=== PATIENT | female | born 1980 | race Caucasian/White ===

== ENCOUNTER → 2023-05-08 12:29 | Outpatient (REF) | payer OTHER, SELFPAY | LOC: WDC 12:29 | PROVIDERS: ATTENDING PHYSICIAN Obstetrics & Gynecology; FAMILY PHYSICIAN Family Medicine | DX: Z12.31 Encounter for screening mammogram for malignant neoplasm of breast (principal) | CPT/HCPCS: 77063; 77067 ==

== ENCOUNTER → 2024-03-26 10:21 | Outpatient (REF) | payer OTHER, SELFPAY | LOC: HWRAD 10:21 | PROVIDERS: ATTENDING PHYSICIAN Obstetrics & Gynecology; FAMILY PHYSICIAN Family Medicine | DX: N92.0 Excessive and frequent menstruation with regular cycle (principal) | CPT/HCPCS: 76830; 76856 ==

== ENCOUNTER → 2024-05-13 12:21 | Outpatient (REF) | payer OTHER, SELFPAY | LOC: WDC 12:21 | PROVIDERS: ATTENDING PHYSICIAN Obstetrics & Gynecology; FAMILY PHYSICIAN Family Medicine | DX: Z12.31 Encounter for screening mammogram for malignant neoplasm of breast (principal) | CPT/HCPCS: 77063; 77067 ==

== ENCOUNTER 2024-05-14 06:32 | Day surgery (SDC) | payer OTHER, SELFPAY | END 2024-05-14 10:09 | disposition home or self-care (01) | LOC: GI 06:32 | PROVIDERS: ATTENDING PHYSICIAN Internal Medicine Gastroenterology | DX: R12 Heartburn (principal); K31.89 Other diseases of stomach and duodenum; K44.9 Diaphragmatic hernia without obstruction or gangrene; K22.89 Other specified disease of esophagus; K31.7 Polyp of stomach and duodenum; K29.50 Unspecified chronic gastritis without bleeding; K20.90 Esophagitis, unspecified without bleeding | CPT/HCPCS: 43239; 88305; 88342 ==

== ENCOUNTER 2025-02-13 11:05 | Inpatient (IN) | payer OTHER, SELFPAY ==
[2025-02-12 17:27] VITALS: BP 111/70; BMI 19.2
--- NOTE | 2025-02-12 17:45 | ED.CVA ---
History of Present Illness
General
Chief Complaint: CVA/TIA Symptoms
Source: patient
Exam Limitations: none
Time Seen by Provider: 02/12/25 17:36
Nursing documentation reviewed up to this point in time: agreed with
Onset of Stroke Symptoms
Onset of symptoms known: Yes
Date of onset of symptoms: 02/12/25
Time of onset of symptoms: 15:35
History of Present Illness
History of Present Illness:
44-year-old female ocular migraines 3:35 PM after getting a shower she felt dizzy change in her vision with a headache son states her speech was off, that is resolved, my evaluation she has a left facial not involving the forehead otherwise nonfocal
exam
Past History
Past History
ED Past Medical History: Other (Ulcers , Tachy rhythm)
ED Past Surgical History: None
Social History
Tobacco: Non-smoker
Alcohol: Occasional
Personal:
Employment: Employed
Phy Exam
Physical Exam
Physical Exam:
Physical Exam
General: no apparent distress, not acutely ill
Neck: No tongueBite
Heart: s1/s2 regular rate and rhythm, no murmur. equal radial pulses.
Lungs: no acute respiratory distress. clear bilaterally
Abdomen: normal bowel sounds. not tender. no CVAT
Neuro: Left-sided facial droop sparing the forehead
Skin: no rash
Psychiatric: well kept. interactive and cooperative
Extremities: no edema.
Course
Orders/Labs/Results
Orders:
Orders
02/12/25 17:43
Electrocardiogram (*1) Stat
Reason for Study: Other
Other Reason for Exam: neuro symptoms
CT BRAIN PERF STROKE ALERT Urgent
Comment:
Reason For Exam: headache left facial
CT HEAD STROKE ALERT W/o Cont Urgent
Comment:
Reason For Exam: heada left facial
CT HEAD/NECK ANG STROKE ALERT Urgent
Comment:
Reason For Exam: head left facial
Cardiac Monitoring- Treatment ONCE
EKG- Treatment ONCE
02/12/25 17:47
Complete Blood Count/With Diff Urgent
Comprehensive Metabolic Panel Urgent
Erythrocyte Sed Rate Urgent
PTT Urgent
Prothrombin Time Urgent
02/12/25 18:36
Aspirin 325 mg PO NOW STA
Metoclopramide [Reglan] 10 mg IV NOW STA
Abnormal Lab Results
02/12/25
17:47
WBC 4.6 L 10^3/uL
(4.8-10.8)
RBC 3.62 L 10^6/uL
(4.20-5.40)
Hct 35.1 L %
(37.0-47.0)
MCH 34.3 H pg
(27.0-31.0)
PT 14.7 H Sec
(11.4-14.6)
Sodium 134 L mmol/L
(135-145)
02/12/25 17:47
02/12/25 17:47
Vital Signs
Initial and Last Documented VS:
Initial Vital Signs
Temp Pulse Resp Pulse Ox
98.2 F 67 16 99
02/12/25 17:15 02/12/25 17:15 02/12/25 17:15 02/12/25 17:15
Last Documented Vital Signs
Temp Pulse Resp BP Pulse Ox
98.2 F 69 17 106/69 99
02/12/25 17:15 02/12/25 19:00 02/12/25 19:00 02/12/25 19:00 02/12/25 19:00
MDM/Problems Addressed
Differential Diagnosis Includes:
Complicated migraine, stroke mass seizure with Vasquez's paralysis
MDM/Problems Addressed:
Headache visual changes left facial palsy
Chronic conditions affecting care:
Ocular migraine
Chronic conditions affecting care: Neurological disorder
Acute Exacerbation and/or Progression of Chronic Illness: Neurological disorder
*Pulse Oximetry
SaO2: 100
Oxygen Mode of Delivery: Room air
Patient hypoxic: no
*EKG
Interpreted by ED Provider?: Yes
Interpretation: normal
Comparison EKG: no comparison EKG present
Heart Rate: 78
Rate: normal
Rhythm: sinus
Ischemia: non-specific ST changes
*Traffic Rate Analyst Interpretation
Rate: normal
Interpretation: normal
Heart Rate: 78
Rhythm: sinus
*Critical Care Note
Total Time (30-74mins, 75-104mins- exclusive of procedures): 32
Update Note
Update Note:
Update stroke alert called upon my evaluation of the patient,
Reviewed with stroke fellow at [facility] does not recommend TNK, they do recommend dual antiplatelet and admission for MRI
7:15 PM update patient feeling a bit better after aspirin and Reglan still has a left facial palsy with a looks improved to my eye, reviewed plan of care including admission and specialty consultation consideration for advanced imaging
ED Attending Note
-
Portions of this chart may have been created with voice recognition software.� Occasional wrong word or��sound alike� substitutions may have occurred due to the inherent limitations of voice recognition software.
Discharge Plan
Departure
Patient Disposition: Admit
Date of Disposition: 02/12/25
Time of Disposition: 19:22
Admit to: Telemetry
Presentation/result/management discussed w/ accepting MD/DO: Hospitalist
Patient with high blood pressure during this ER visit?: No
Condition: Fair
Discharge Problem:
CVA versus complicated migraine
Prescriptions:
No Action
valacyclovir [Valtrex] 1 gram Tablet
1,000 mg PO DAILYPRN PRN (Reason: cold sores)
famotidine [Pepcid] 40 mg Tablet
40 mg PO DAILY
ascorbic acid (vitamin C) [Vitamin C] 500 mg Tablet
500 mg PO DAILY
cwdkjce-yywyirnkawepm-guhgixfl [Excedrin Migraine] 250-250-65 mg Tablet
1 tab PO DAILYPRN PRN (Reason: headaches)
cholecalciferol (vitamin D3) [Vitamin D3] 25 mcg (1,000 unit) Tablet
25 mcg PO DAILY
Visbiome 112.5 billion cell Capsule
1 cap PO DAILY
cyanocobalamin (vitamin B-12) 1,000 mcg Tablet
1,000 mcg PO DAILY
Referrals:
Inessa Srinivasan MD [Family Provider, Family Practice]
Interventions
Interventions:
*Risk Screen - Suicide Last Done: 02/12/25 17:15
*General Assessment Last Done: 02/12/25 17:27
*Neglect/Abuse Screening Last Done: 02/12/25 17:15
*ED- Fall Risk Assessment Last Done: 02/12/25 17:27
*ED COVID-19 Vaccine History Last Done: 02/12/25 17:27
*ED Influenza Vaccine History Last Done: 02/12/25 17:27
ED- Pulmonary Assessment Last Done: 02/12/25 17:28
ED- Neurological Assessment Last Done: 02/12/25 19:18
ED- Cardiac Assessment Last Done: 02/12/25 17:28
ED Swallowing Screen Last Done: 02/12/25 18:44
Discharge Date and Time
Print Language: FAROESE
--- NOTE | 2025-02-12 17:47 | ED TECH ---
A STROKE ALERT was called #[id number]# Per @17:43pm . Cat Scan Notified.
[2025-02-12 17:53] LABS: Hematocrit 35.1 % (37.0-47.0); Hemoglobin 12.4 g/dL (12.0-16.0); Mean Corp Hgb Conc. 35.3 g/dL (33.0-37.0); Mean Corpuscular Volume 97.0 fL (81.0-99.0); Nucleated Red Blood Cells % 0 %; Platelet Count 195 10^3/uL (130-400); Red Cell Dist. Width 11.7 % (11.5-14.5)
[2025-02-12 18:00] VITALS: BP 107/67
[2025-02-12 18:06] LABS: INR 1.13; PT 14.7 Sec (11.4-14.6)
[2025-02-12 18:07] LABS: APTT 25.6 Sec (23.4-35.0)
[2025-02-12 18:13] LABS: ALT (SGPT) 21 U/L (0-35); AST (SGOT) 24 U/L (14-36); Albumin 4.1 g/dl (3.5-5.0); Alkaline Phosphatase 43 U/L (38-126); Blood Urea Nitrogen 13 mg/dl (7-17); Calcium 9.3 mg/dl (8.4-10.2); Carbon Dioxide 27 mmol/L (22-30); Chloride 103 mmol/L (98-107); Estimated Creatinine Clearance 88 ml/min; Glucose 95 mg/dl (70-99); Potassium 3.6 mmol/L (3.5-5.1); Sodium 134 mmol/L (135-145); Total Protein 6.8 g/dl (6.3-8.2); eGFR > 60.00
[2025-02-12] MEDS: REGLAN 10 MG IV (18:48)
[2025-02-12] MEDS: ASPIRIN 325 MG PO (18:48)
[2025-02-12 19:00] VITALS: BP 106/69
[2025-02-12 20:00] VITALS: BP 111/72
--- NOTE | 2025-02-12 20:01 | HPS.HSE ---
Family Physician
-
Family Physician: Inessa Srinivasan
Chief Complaint
-
Ataxia, Slurred Speech, Vision Changes
History of Present Illness
Patient is a 44y F with PMH significant for IBS / gastroparesis and migraine headaches who presents to ED complaining of ataxia, dysarthria and vision changes this afternoon. Patient states that she was exiting the shower around 3:30 this
afternoon when she felt dizzy and off-balance. She states that she was thinking about stressful issues just prior to onset of her symptoms. She has prior h/o vasovagal events, lightheadedness and 'fainting' and notes that today's symptoms were
decidedly different. She had vision change / double vision and 'felt like my eyes were crossed'. She was unsteady on her feet and notes that she bumped into doors, glaser, etc with her L side repeatedly. While leaning on a chair, she constantly
felt as if she were falling to her left. She denies falling, head injury or loss of consciousness.
Patient attempted to describe her symptoms to her family who note that she was 'mumbling' without coherent speech.
Patient states that she had a fullness / pain on the R side of the head and felt thickness and difficulty speaking with the R side of her mouth.
Patient presented to the ED for further evaluation. She received ASA and Reglan in the ED. Her symptoms began to improve.
At the time of my examination patient feels 'off' but the majority of her prior / specific symptoms have resolved.
Patient states that she had symptoms of palpitations and dyspnea with exertion earlier in the day today.
This occurred with climbing a single flight of stairs only.
She exercises daily and denies any prior h/o similar symptoms.
No chest pain. No palpitations at present.
Patient reports prior h/o migraine headaches as noted. Typical migraines include sharp pain in the L zoroastrian / eye area. She has occasional associated visual changes including wavy lines / bright lights.
No previous dysarthria, ataxia, etc.
Patient notes about 2-3 migraines per month on average.
Over the past two weeks this has significantly increased and she notes nearly daily migraines over the past week.
Medical History
Past Medical History
Past Medical History: Reports Other
Additional Past Medical History:
Migraine Headaches
IBS
Gastroparesis
Anxiety / Depression
Past Surgical History: Reports Other
Additional Past Surgical History:
Skin Lesion Excision
Social History
Tobacco: Non-smoker
Alcohol: Occasional
Drug: None
Family History
Family History: Other (Father: [place], CVA)
Allergies / Home Medications
Allergies reflects when Allergies were last updated in [facility].
Home Medications with original date entered in [facility]
Allergy/Medication List:
Allergies
Allergy/AdvReac Type Severity Reaction Status Date / Time
nifedipine (From Procardia) Allergy Severe Shortness Verified 02/12/25 17:18
of Breath
Home Medications
Lactobac no.2-Bifidobac no.1-S. thermo 112.5 billion cell capsule (Visbiome) 1 cap PO DAILY 02/12/25
ascorbic acid (vitamin C) 500 mg tablet (Vitamin C) 500 mg PO DAILY Supplement 02/12/25
magvxgj-xcqgzieqexkop-apxeooqi 250 mg-250 mg-65 mg tablet (Excedrin Migraine) 1 tab PO DAILYPRN PRN headaches 02/12/25
cholecalciferol (vitamin D3) 25 mcg (1,000 unit) tablet (Vitamin D3) 25 mcg PO DAILY Supplement 02/12/25
cyanocobalamin (vitamin B-12) 1,000 mcg tablet 1,000 mcg PO DAILY Supplement 02/12/25
famotidine 40 mg tablet (Pepcid) 40 mg PO DAILY Gastrointestinal Issue 02/12/25
valacyclovir 1 gram tablet (Valtrex) 1,000 mg PO DAILYPRN PRN cold sores 02/12/25
Review of Systems
-
History Source: Patient
A 12 point ROS was completed and negative except as noted: Yes
Constitutional: Reports Fatigue; Denies Fever or Chills
EENT: Denies Sore Throat
Respiratory: Reports Trouble Breathing; Denies Cough
Cardiac: Reports Palpitations; Denies Chest Pain
Abdomen/GI: Denies Abdominal Pain, Nausea or Vomiting
: Denies Dysuria or Flank Pain
Musculoskeletal: Denies Joint Pain or Edema
Neurological: Reports Dizzy, Headache and Other (dysarthria, vision changes); Denies Weakness or Numbness
Psych: Reports Anxiety; Denies Depression
Physical Exam
Vital Signs
Vital Signs
Temp Pulse Resp BP Pulse Ox
98.2 F 69 17 106/69 99
02/12/25 17:15 02/12/25 19:00 02/12/25 19:00 02/12/25 19:00 02/12/25 19:00
Physical Exam
General: Other (44y F in mild distress due to anxiety / stress.)
HEENT: Moist mucous membranes and PERRLA
Respiratory: Clear; No Wheezes, Rales or Rhonchi
Cardiac: S1/S2 and Regular Rhythm; No Murmur
GI: Soft, Non Tender, Non Distended and Normal Bowel Sounds
Musculoskeletal: No Clubbing, No Cyanosis and No Edema
Neuro: AO x 3, Nonfocal/grossly intact and Other (Sensorimotor intact at present. No facial droop appreciated at time of my exam. Smile is symmetric and tongue extends to midline. Ppocbw-gq-dvdv intact.)
Laboratory Results
-
02/12/25 17:47
02/12/25 17:47
Laboratory Results
PT 14.7 Sec (11.4-14.6) H 02/12/25 17:47
INR 1.13 02/12/25 17:47
APTT 25.6 Sec (23.4-35.0) 02/12/25 17:47
Total Bilirubin 0.4 mg/dl (0.2-1.3) 02/12/25 17:47
AST 24 U/L (14-36) 02/12/25 17:47
ALT 21 U/L (0-35) 02/12/25 17:47
Alkaline Phosphatase 43 U/L (38-126) 02/12/25 17:47
Impression/Plan
-
A/P: Patient is a 44y F with PMH significant for migraines, anxiety and IBS who presents to ED for evaluation after episode of ataxia, dysarthria and vision changes.
Ataxia, Dysarthria, Vision Changes
- Observe overnight for further evaluation and treatment.
- ? CVA / TIA versus migraine syndrome - latter seems most likely given age, history, etc.
- CT, CTA, CTP in the ED were unremarkable.
- No focal symptoms / exam findings at present.
- Continue DAPT. MRI in AM.
- Follow for new / recurrent neurologic symptoms.
- Local Neurology evaluation in the AM for further recommendations.
Migraine Headaches
- Note recent increase in frequency of headaches with near-daily migraines in the past 2 weeks or so.
- Not previously on any preventative medications / not seen by Neurology or headache clinic.
- Rule out CVA / TIA as noted above.
- Neurology evaluation / outpatient follow-up for migraine treatment(s).
Palpitations
- Patient with episodes of palpitations and dyspnea with exertion this afternoon prior to presenting symptoms.
- Monitor on telemetry overnight.
- Consider Echo for further evaluation - likely as an outpatient if patient discharged prior to Friday.
IBS / Gastroparesis
Anxiety / Depression
- Stable.
DVT Prophylaxis: SCDs
Code Status: Full
[2025-02-12 21:45] VITALS: BP 109/68; BMI 19.4
--- NOTE | 2025-02-12 23:37 | PTCARENOTE ---
Pt was admitted to floor from ED. AAOx3. VSS. SB on the monitor. Neuro checks within normal limits. NIH is 0. Pt reports symptoms prior to admission are not longer present. Oriented to room. call torres within reach. Plan of care ongoing.
[2025-02-12 23:39] VITALS: BP 101/66
[2025-02-13] VITALS (8 sets, daily range): BP systolic 97–115; BP diastolic 55–77; PULSE 65–97; O2SAT 97
[2025-02-13 07:23] LABS: Hematocrit 37.7 % (37.0-47.0); Hemoglobin 13.2 g/dL (12.0-16.0); Mean Corp Hgb Conc. 35.0 g/dL (33.0-37.0); Mean Corpuscular Volume 99.5 fL (81.0-99.0); Platelet Count 221 10^3/uL (130-400); Red Cell Dist. Width 11.6 % (11.5-14.5)
[2025-02-13 07:57] LABS: Blood Urea Nitrogen 11 mg/dl (7-17); Calcium 9.1 mg/dl (8.4-10.2); Carbon Dioxide 27 mmol/L (22-30); Chloride 105 mmol/L (98-107); Estimated Creatinine Clearance 104 ml/min; Glucose 97 mg/dl (70-99); HDL Cholesterol 69 mg/dl; LDL Cholesterol, Calculated 131 mg/dl; Potassium 4.2 mmol/L (3.5-5.1); Sodium 136 mmol/L (135-145); Very Low Density Lipoprotein 14 mg/dl (0-30); eGFR > 60.00
--- NOTE | 2025-02-13 08:21 | W.PN.HOSP.TC ---
Addendum entered and electronically signed by Chilango Lugo, 02/13/25 16:34:
Neurology now recommends MADDY.
Consulted cardiology to arrange for MADDY tomorrow, NPO after MN.
Informed patient.
Addendum entered and electronically signed by Chilango Lugo DO 02/13/25 12:27:
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 Denies history of VTE.
Also tells me that her father has factor V Leiden.
Hematology consulted.
Addendum entered and electronically signed by Chilango Lugo, 02/13/25 11:41:
Brain MRI unfortunately shows acute ischemic infarct in the right thalamus, 1 cm in size.
Will need thrombophilia workup. Most of it should be done as an outpatient.
Antiphospholipid panel sent.
Echocardiogram with bubble study to be done on Friday.
Currently on dual antiplatelet therapy per neurology.
Original Note:
Today's Communication/Plan
-
Brain MRI
Neurology consult
Assessment / Plan
Assessment / Plan
Gen-AAOx3, NAD
HEENT-NC, AT, anicteric, clear oral mm
Neck-supple
CV-reg, no M, +S1/S2
Lungs-clear B/L
Abd-soft, NT, ND
Ext-no edema
Musculoskeletal-no cyanosis, clubbing
Skin-warm and dry
Neuro-grossly non-focal
Psych-calm, cooperative
Complicated migraine -clinically, stroke seems unlikely. Awaiting brain MRI.
CTA head and neck negative. Head CT negative. Nonfocal neurologic exam.
Neurology consulted.
If brain MRI negative, discontinue antiplatelet therapy.
Recommend outpatient follow-up with headache specialist. Patient states she is under unusual amount of stress due to relationship with mother. This likely triggered increased frequency of migraines recently.
History of migraines -not on prophylactic meds. Takes Excedrin or Tylenol as needed. Not taking on a daily basis. Not on prescription abortive medication.
Recommend outpatient neurology follow-up. May benefit from prophylactic migraine medication given increased frequency of headaches.
Hyponatremia -present on admission, resolved.
Asymptomatic leukopenia -not clinically significant.
IBS
Gastroparesis
Anxiety/depression
Full code
Dispo -anticipate discharge if brain MRI negative. Outpatient follow-up.
Anticipated Discharge: Today
Subjective/Interval History
-
Date of Service: February 13, 2025
Patient seen and examined, feeling much better, no complaints.
Objective Data
-
Labs:
Laboratory Results
02/13/25
06:57
WBC 4.0 L
Hgb 13.2
Hct 37.7
Plt Count 221
Sodium 136
Potassium 4.2
Chloride 105
Carbon Dioxide 27
BUN 11
Creatinine 0.6
Glucose 97
Calcium 9.1
Vital Signs:
Vital Signs
Temp Pulse Resp BP Pulse Ox
98.4 F 67 12 108/64 98
02/13/25 07:44 02/13/25 07:44 02/13/25 07:44 02/13/25 07:44 02/13/25 07:44
I&O
02/12/25 02/13/25 02/14/25
06:59 06:59 06:59
Intake Total 480 / 480
Balance 480 / 480
Review of Systems
-
History Source: Patient
All other systems: Reviewed and negative
[2025-02-13] MEDS: LOW STRENGTH ASPIRIN 81 MG PO (08:47)
[2025-02-13] MEDS: PLAVIX 75 MG PO (08:47)
[2025-02-13 08:51] LABS: Glycohemoglobin (HgbA1c) 5.3 % (4.0-5.9)
[2025-02-13 08:53] LABS: HCG, Serum Qualitative Screen Negative
--- NOTE | 2025-02-13 09:19 | CON.NEURO4 ---
Consultation - Neurology 4
-
CONSULTING PHYSICIAN: Dr. Les Cardenas
REFERRING PHYSICIAN: Dr. Gerardo Gregg
DICTATED BY: Dr. Les Cardenas
DATE/TIME OF REQUEST: 02/13/2025
DATE/TIME OF CONSULTATION: 02/13/2025
Reason for Consultation: Slurred speech, ataxia, vision changes
ASSESSMENT AND PLAN:
The patient is a 44 years old female with a past medical history of IBS, gastroparesis and migraine headaches, who presents to ED complaining of ataxia, dysarthria and vision changes. Patient states that she was exiting the shower around 3:30 pm
yesterday on 02/12/2025, when she felt dizzy and off-balance. The last known normal time was 3:30 PM yesterday on 02/12/2025. She states that she was thinking about stressful issues just prior to onset of her symptoms. She has prior h/o vasovagal
events, lightheadedness and 'fainting' and notes that today's symptoms were decidedly different. She had vision change / double vision and 'felt like my eyes were crossed'. She was unsteady on her feet and notes that she bumped into doors, glaser,
etc with her left side repeatedly. While leaning on a chair, she constantly felt as if she were falling to her left. She denies falling, head injury or loss of consciousness.
Today the patient says she is feels better and she denies any weakness or numbness of upper and lower extremities. She says her speech is back to her baseline.
The NIHSS = 0
. CT of the head does not show acute intracranial abnormality.
. CTA of head and neck does not show a large vessel occlusion.
. MRI brain showed a 1.0 cm ACUTE ISCHEMIC INFARCT in the RIGHT THALAMUS.
The patient says that she has a history of prothrombin gene mutation. She denies history of VTE.
Plan to get MADDY tomorrow.
Workup for stroke in a young patient is in progress. The patient will need hypercoagulability workup including prothrombotic disorders like protein C deficiency, protein S deficiency, Antithrombin deficiency and antiphospholipid antibodies. She
will also need workup to confirm prothrombin gene mutation.
Hematology consult.
Discussed with Dr. Lugo.
History of Present Illness:
The patient is a 44 years old female with a past medical history of IBS, gastroparesis and migraine headaches, who presents to ED complaining of ataxia, dysarthria and vision changes. Patient states that she was exiting the shower around 3:30 pm
yesterday on 02/12/2025, when she felt dizzy and off-balance. The last known normal time was 3:30 PM yesterday on 02/12/2025. She states that she was thinking about stressful issues just prior to onset of her symptoms. She has prior h/o vasovagal
events, lightheadedness and 'fainting' and notes that today's symptoms were decidedly different. She had vision change / double vision and 'felt like my eyes were crossed'. She was unsteady on her feet and notes that she bumped into doors, glaser,
etc with her left side repeatedly. While leaning on a chair, she constantly felt as if she were falling to her left. She denies falling, head injury or loss of consciousness.
Today the patient says she is feels better and she denies any weakness or numbness of upper and lower extremities. She says her speech is back to her baseline.
Past Medical History:
IBS,
gastroparesis and
migraine
Anxiety
Depression
Review of Systems:
The 10 point review systems were negative aside from as given the above history of present illness.
Neurologic Examination:
Alert and oriented x 3
Speech is clear
Cranial nerves II to XII are grossly intact
Motor strength is grossly 5/5 bilaterally in the upper and lower extremities
The sensations are intact
Cerebellar examination does not show limb ataxia
Vital Signs and Labs
-
Vital Signs and Labs:
Vital Signs
Temp Pulse Resp BP Pulse Ox
36.7 C 71 12 105/73 99
11/30/25 15:25 02/13/25 15:25 02/13/25 15:25 02/13/25 15:25 02/13/25 15:25
Lab Results
02/13/25 06:57
02/13/25 06:57
PT 14.7 Sec (11.4-14.6) H 02/12/25 17:47
INR 1.13 02/12/25 17:47
APTT 25.6 Sec (23.4-35.0) 02/12/25 17:47
Sodium 136 mmol/L (135-145) 02/13/25 06:57
Potassium 4.2 mmol/L (3.5-5.1) 02/13/25 06:57
BUN 11 mg/dl (7-17) 02/13/25 06:57
Glucose 97 mg/dl (70-99) 02/13/25 06:57
Calcium 9.1 mg/dl (8.4-10.2) 02/13/25 06:57
LDL Cholesterol, Calc 131 mg/dl 02/13/25 06:57
Medications
Medications
Medications reviewed.
[2025-02-13] MEDS: TORADOL 10 MG IV ×2 (10:09→17:18)
--- NOTE | 2025-02-13 12:06 | PTOTSP ---
ST Acute Care Evaluation
Pt currently presents with clinical signs of oral, pharyngeal, and esophageal swallowing parameters that are WFL - no overt s/s of penetration or aspiration noted at bedside. Cannot rule out silent aspiration at bedside. Of note, pt with hx of GERD
- on meds and well-managed, per pt. No skilled dysphagia services warranted at this time.
Pt currently presents with cognitive communication skills that are WFL (MOCA=30). Pt's speech is clear, fluent, and fully intelligible. Pt's receptive and expressive language are without deficit at this time. No skilled cognitive communication tx
indicated at this time.
Recommendations:
- Continue with regular solids, thin liquids, meds as tolerated (use puree as needed).
- General aspiration and reflux precautions.
- OUTPATIENT SCHEDULER team to sign off - no skilled OUTPATIENT SCHEDULER services warranted at this time.
[2025-02-13] MEDS: LIPITOR 40 MG PO (17:19)
[2025-02-13] MEDS: REGLAN 10 MG IV (20:28)
[2025-02-14 04:00] VITALS: BP 120/70
[2025-02-14] MEDS: PLAVIX 75 MG PO (07:09)
[2025-02-14] MEDS: LOW STRENGTH ASPIRIN 81 MG PO (07:09)
[2025-02-14] MEDS: REGLAN 10 MG IV (07:09)
--- NOTE | 2025-02-14 07:13 | CON.CAR ---
Addendum entered and electronically signed by Michelle Nails DO 02/14/25 14:10:
Spoke with procedural compounding technician status post MADDY. Normal biventricular size and systolic function with no left atrial/left atrial appendage thrombus. Small PFO with bidirectional shunt by color-flow Doppler and positive bubble study. Spoke with
patient and her following MADDY and updated primary service as well as neurology. Will plan on 30-day rhythm Star MCOT; can later decide if Linq necessary for long-term arrhythmia monitoring. Patient will have hematology/hypercoagulable
workup. Outpatient cardiac follow-up with Dr. Fried arranged.
Addendum entered and electronically signed by Michelle Nails DO 02/14/25 09:11:
I saw and examined the patient.
The Director Of Payroll's note was reviewed and I agree with the note.
Comment: Patient was seen and examined with cardiac PA. Lamar is a 44-year-old female with history of migraines, IBS/GERD and anxiety on no kdhh-rkq-hkszqmw or prescribed medications. She also has a history of miscarriages diagnosed with
prothrombin, factor II gene mutation but has no history of thromboembolic disease. She is a lifelong non-smoker. Lamar was in the shower at home on Friday afternoon, and was cleaning the glass with a squeegee using her dominant right hand when
she developed a dizzy sensation/felt off balance and had visual changes where she felt her right eye gaze was directed towards her nose. No eye pain and visual abnormalities but disappear with closing 1 eye. Patient attempted to relay the symptoms
to her son and her speech was difficult to understand and garbled. She denies upper or lower extremity weakness and denies syncope or fall. Patient came to the ER and initial CT of the head was unremarkable and symptoms improved so TNK was not
recommended. Symptoms lasted approximately [address] imaging in the ER. Subsequent MRI of the brain that showed acute CVA in the right thalamus. No evidence of large vessel/carotid disease on CT angio of the head /neck.
Today she does have a slight headache which she did not have at the onset of symptoms but otherwise feels back to her usual self with resolved symptoms. Patient says that she will sometimes feel palpitations in the setting of an anxiety attack, but
never for more than 1 or 2 beats at a time for a few seconds. She does have an Apple watch which she usually wears although was not wearing at the time of the event. I did check her Apple watch alerts and she did not have arrhythmia monitoring set
up; set up at bedside. No history of drug or alcohol use prior to episode. Patient's father had a CVA in his 60s and he was later diagnosed with factor V Leiden deficiency. No family history for atrial fibrillation. Patient had a few
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
General: No acute distress, AAOX3
Neck: Negative JVD
Heart: Regular, Negative S3 positive S1/S2, Negative S4, No murmur
Lungs: CTA b/l, negative wheezes/rales/rhonchi
Abd: Positive BS, NT/ND, neg rebound/rigidity/guarding
Ext: Negative cyanosis/clubbing/edema
Neuro: nonfocal
Plan:
Acute stroke in the right thalamus
-CT without acute intracranial abnormality, CTA head and neck without large vessel occlusion, MRI of the brain shows a 1 cm acute ischemic infarct of the right thalamus
-Sinus tachycardia but no arrhythmias on telemetry monitoring overnight
-Patient does have reported history of prothrombin gene mutation
-Blood pressures normotensive
-LDL on admission 131. TSH 2.5. Hemoglobin A1c 5.3%. Normal renal function. Normal electrolytes. Normal hemoglobin.
-Agree with plan for hematology consult either inpatient or outpatient and repeat hypercoagulable workup
-Aspirin and Plavix started per neurology
-New atorvastatin 80 mg daily with goal LDL less than 70 mg/dL
-Plan for MADDY with bubble study today followed by Linq implant for arrhythmia monitoring-discussed details of procedures with patient, all questions answered. She is agreeable to proceed
-Outpatient cardiac follow-up to be arranged
- Case discussed with neurology
Original Note:
Consultation
Consultation Request
Date/Time Consultation Requested: 02/13/25 at 1623
Date/Time Consultation Performed: 01/15/25 at 0714
Requesting Provider: Dr. Lugo
Performing Provider: Dr. Nails
Reason for Consultation: CVA, evaluation for MADDY
Medical History
-
History of Present Illness:
Patient came to the ER on Friday afternoon with dysarthria, ataxia and vision changes and MRI found evidence of a right thalamic CVA prompting cardiology consultation for MADDY. Patient has a history of migraine headaches and also has a history of
anxiety. Patient was in the shower at home on Friday afternoon and upon exiting the shower she felt off balance and was bumping into things which was unusual. Patient felt her vision was off and she felt like she was cross eyed. Patient
attempted to relay the symptoms to her son and her speech was difficult to understand and garbled. Patient came to the ER and initial CT of the head was unremarkable and symptoms improved so TNK was not recommended. Patient then had MRI of the
brain that showed acute CVA in the right thalamus. No evidence of carotid disease on CT angio of the head neck. Patient reports symptoms continue to be improved and no evidence of lateralizing weakness. Patient says that she will sometimes feel
palpitations in the setting of an anxiety attack, but never for more than 1 or 2 beats at a time for a few seconds. No history of drug or alcohol use prior to episode. Patient's father had a CVA in his 60s and he was later diagnosed with factor V
Leiden deficiency. Patient had a few miscarriages and underwent testing that revealed a prothrombin (factor II) gene mutation.
PMH:
h/o migraine headaches
IBS
Anxiety
Palpitations in the setting of anxiety
h/o miscarriages and diagnosis of prothrombin (Factor II) gene mutation
Past Medical History
Past Medical History: Other (in HPI)
Past Surgical History: None
Social History
Tobacco: Non-Smoker
Alcohol: Occasional (1-2 drinks on the weekends only)
Drug: None
Personal:
Living: With Family
Employment: Employed
Family History
Family History: Other (father with CVA in his 60s, younger sister with no health issues)
Allergies / Home Medications
Allergy/AdvReac Type Severity Reaction Status Date / Time
nifedipine (From Procardia) Allergy Severe Shortness Verified 02/12/25 17:18
of Breath
�Medication �Instructions �Recorded �Confirmed �Type
Lactobac no.2-Bifidobac no.1-S. 1 cap PO DAILY Gastrointestinal 02/12/25 02/12/25 History
thermo 112.5 billion cell capsule Issue
(Visbiome)
ascorbic acid (vitamin C) 500 mg 500 mg PO DAILY Supplement 02/12/25 02/12/25 History
tablet (Vitamin C)
cfdwvrl-anzfehvrpofze-aqxpybrk 250 1 tab PO DAILYPRN PRN headaches 02/12/25 02/12/25 History
mg-250 mg-65 mg tablet (Excedrin
Migraine)
cholecalciferol (vitamin D3) 25 25 mcg PO DAILY Supplement 02/12/25 02/12/25 History
mcg (1,000 unit) tablet (Vitamin
D3)
cyanocobalamin (vitamin B-12) 1,000 mcg PO DAILY Supplement 02/12/25 02/12/25 History
1,000 mcg tablet
famotidine 40 mg tablet (Pepcid) 40 mg PO DAILY Gastrointestinal 02/12/25 02/12/25 History
Issue
valacyclovir 1 gram tablet 1,000 mg PO DAILYPRN PRN cold sores 02/12/25 02/12/25 History
(Valtrex)
Review of Systems
-
History Source: Patient
All other systems: Negative unless noted
Physical Exam
Vital Signs
Temp Pulse Resp BP Pulse Ox
98.0 F 69 18 120/70 98
02/14/25 04:00 02/14/25 04:00 02/14/25 04:00 02/14/25 04:00 02/14/25 04:00
GEN: NAD. AAOx3
HEENT: EOMI, MMM
LUNGS: RA. CTA B/L, no wheeze
CV: SR on tele. Reg, S1/S2, no murmur
ABD: ND
EXT: No edema B/L LE
NEURO: Gross non-focal
SKIN: Warm, dry and pink. No rash
Lab Results
02/13/25 06:57
02/13/25 06:57
Impression / Plan
-
PCP: Dr. Srinivasan
Cardiology: None prior to admission
Impression:
Admitted with ataxia, dysarthria and vision changes 02/12/25
Acute CVA with right thalamus infarct on MRI brain 02/13/25
h/o migraine headaches
IBS
Anxiety
Palpitations in the setting of anxiety
h/o miscarriages and diagnosis of prothrombin (Factor II) gene mutation
MADDY 02/14/2025: Study pending
Plan:
-Patient came to the ER on Friday afternoon with dysarthria, ataxia and vision changes and MRI found evidence of a right thalamic CVA prompting cardiology consultation for MADDY. Patient has a history of migraine headaches and also has a history of
anxiety. Patient was in the shower at home on Friday afternoon and upon exiting the shower she felt off balance and was bumping into things which was unusual. Patient felt her vision was off and she felt like she was cross eyed. Patient
attempted to relay the symptoms to her son and her speech was difficult to understand and garbled. Patient came to the ER and initial CT of the head was unremarkable and symptoms improved so TNK was not recommended. Patient then had MRI of the
brain that showed acute CVA in the right thalamus. No evidence of carotid disease on CT angio of the head neck. Patient reports symptoms continue to be improved and no evidence of lateralizing weakness. Patient says that she will sometimes feel
palpitations in the setting of an anxiety attack, but never for more than 1 or 2 beats at a time for a few seconds. No history of drug or alcohol use prior to episode. Patient's father had a CVA in his 60s and he was later diagnosed with factor V
Leiden deficiency. Patient had a few miscarriages and underwent testing that revealed a prothrombin (factor II) gene mutation.
-ECG reviewed by me is SR without acute ST changes. Telemetry also reviewed by me is SR without evidence of atrial arrhythmia
-Patient has evidence of an acute right thalamus CVA on MRI of the brain. Neurology consultation reviewed by me and MADDY has been recommended.
-Reviewed with patient the process for MADDY and possible outcomes. Patient is agreeable to proceed with MADDY on 02/14/2025.
-Patient currently on DAPT therapy with aspirin and Plavix, but we discussed a possible transition to OAC pending results of MADDY.
-We also talked about possible atrial arrhythmia as a cause of her CVA and undergoing longer-term monitoring with implantable loop recorder to look for atrial arrhythmia and that if atrial arrhythmias found then OAC would be started.
-We also talked about the possibility of the discovery of PFO and the need to explore closure pending results of MADDY. In broad strokes we discussed what that might look like.
-LDL 131 and patient was started on atorvastatin 80 mg daily this admission.
[2025-02-14 08:01] VITALS: BP 106/69
[2025-02-14 08:13] VITALS: BP 104/66; BP 106/69; BP 114/78; PULSE 102; PULSE 69; PULSE 72
[2025-02-14 13:11] VITALS: BP 119/73
--- NOTE | 2025-02-14 13:20 | W.PN.HOSP.TC ---
Addendum entered and electronically signed by Tae Blackwell MD 02/14/25 15:51:
Discussed with hematology and they will order lupus workup here, patient can be discharged from their standpoint. Discussed with neurology
Time of discharge 37 minutes
Original Note:
Today's Communication/Plan
-
Monitor vital signs see plan
Continue with aspirin and Plavix per neurology
Hematology evaluation pending
Lower extremity Doppler negative for DVT
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
Likely discharge later today if okay with hematology
Assessment / Plan
Assessment / Plan
Gen-AAOx3, NAD
HEENT-NC, AT, anicteric
CV-reg, no M, +S1/S2
Lungs-clear B/L
Abd-soft, NT, ND
Ext-no edema
Psych-calm
Acute CVA
CTA head and neck negative. Head CT negative. Nonfocal neurologic exam.
Neurology following
Currently on dual antiplatelet therapy, continue with aspirin Plavix for 21 days and then discontinue Plavix and continue aspirin alone. If in interim patient is started on anticoagulation done this can be discontinued
Brain MRI with acute right thalamus ischemic infarct. Neurology recommended MADDY. MADDY 02/14 with small PFO. Cardiology recommended 30-day rhythm monitor and to follow-up with them closely outpatient for possible closure of PFO. Per patient she had
some mutation with factor II. Father had factor V Leiden. Hematology evaluation pending.
Continue statin
Lower extremity Doppler negative for DVT
History of migraines -not on prophylactic meds. Takes Excedrin or Tylenol as needed. Not taking on a daily basis. Not on prescription abortive medication.
Recommend outpatient neurology follow-up. May benefit from prophylactic migraine medication given increased frequency of headaches.
Hyponatremia -present on admission, resolved.
Asymptomatic leukopenia -not clinically significant.
IBS
Gastroparesis
Anxiety/depression
Full code
Anticipated Discharge: Today
Subjective/Interval History
-
Date of Service: February 14, 2025
Denies pain
Objective Data
-
Vital Signs:
Vital Signs
Temp Pulse Resp BP Pulse Ox
97.7 F 66 12 119/73 100
02/14/25 13:11 02/14/25 13:11 02/14/25 13:11 02/14/25 13:11 02/14/25 13:11
I&O
02/13/25 02/14/25 02/15/25
06:59 06:59 06:59
Intake Total 480 / 480 2860 / 2860
Balance 480 / 480 2860 / 2860
--- NOTE | 2025-02-14 14:02 | CON.ONC ---
Consultation
-
Date Consultation Requested: 02/14/25
Date Consultation Performed: 02/14/25
Requesting Provider: Dr. Chilango Lugo
Performing Provider: Dr. Ginny Calixto
Reason for Consultation: prothrombin gene mutation, CVA
Impression
Impression
a/w acute CVA
prothrombin gene mutation reported, I do not have records to confirm
father with FVL, CVA
Plan
Plan
f/u cardiolipin, beta2 glycoprotein, and lupus anticoagulant
CVA management per neurology
cardioembolic evaluation per cardiology
Prothrombin [id number] heterozygotes has been estimated to be increased approximately three- to fourfold; VTE risk is higher in homozygotes. The likelihood of deep vein thrombosis (DVT) and pulmonary embolism (PE) is similarly increased. Patients may
also have VTE at atypical sites such as portal, hepatic, or cerebral veins.�For asymptomatic individuals, routine anticoagulation is not required. Counseled on VTE risk reduction including but not limited to surgery, , air travel, prolonged
immobility, and acute medical issues.
Patient History
History of Present Illness
44yo F who was admitted with ataxia, dysarthria and vision changes on 02/12/2025. Evaluation was notable for acute ischemic infarct in the right thalamus. She was started on DAPT and statin by neurology. Cardioembolic evaluation with cardiology is
underway.
She tells me that she had a thrombophilia evaluation after fertility issues with miscarriage. She was noted to have prothrombin gene mutation at that time. She tells me that her father has FVL, however, she tested negative for FVL. She is unsure if
she was tested for APLS. She denies any prior history of blood clots or strokes. She denies any prior use of antiplatelet or anticoagulation.
Clinically, she denies fever, chills, cough, sob, kimbrough, chest pain, n/v/d/c or abdomnal pain. She denies overt bleeding. She gets a monthly menstral cycle and does not take any OCP.
Past-Medical/Surgical History
PMH migraine, IBS, anxiety, palpations, prothrombin gene mutation
Family Father with FVL, CVA
Social , lives with family, employed. denies tobacco use, significant ETOH or recreational drugs.
Patient Medication
�Medication �Instructions �Recorded �Confirmed �Last Taken �Type
Lactobac no.2-Bifidobac no.1-S. 1 cap PO DAILY Gastrointestinal 02/12/25 02/12/25 Unknown History
thermo 112.5 billion cell capsule Issue
(Visbiome)
ascorbic acid (vitamin C) 500 mg 500 mg PO DAILY Supplement 02/12/25 02/12/25 Unknown History
tablet (Vitamin C)
cjixcfs-eaviknjuspsza-pswtdkfn 250 1 tab PO DAILYPRN PRN headaches 02/12/25 02/12/25 Unknown History
mg-250 mg-65 mg tablet (Excedrin
Migraine)
cholecalciferol (vitamin D3) 25 25 mcg PO DAILY Supplement 02/12/25 02/12/25 Unknown History
mcg (1,000 unit) tablet (Vitamin
D3)
cyanocobalamin (vitamin B-12) 1,000 mcg PO DAILY Supplement 02/12/25 02/12/25 Unknown History
1,000 mcg tablet
famotidine 40 mg tablet (Pepcid) 40 mg PO DAILY Gastrointestinal 02/12/25 02/12/25 Unknown History
Issue
valacyclovir 1 gram tablet 1,000 mg PO DAILYPRN PRN cold sores 02/12/25 02/12/25 Unknown History
(Valtrex)
Active Medications
Generic Name Dose Route Start Last Admin
Trade Name Freq PRN Reason Stop Dose Admin
Acetaminophen 650 mg 02/12/25 21:31
Acetaminophen 325 Mg Tablet PO 03/12/25 21:30
Q4HPRN PRN
Mild Pain / Temp > 101
Aspirin 81 mg 02/13/25 08:00 02/14/25 07:09
Aspirin 81 Mg Chewable Tablet PO 03/13/25 07:59 81 mg
DAILY CITLALLI Administration
Atorvastatin Calcium 80 mg 02/14/25 08:32
Atorvastatin (Lipitor) 40 Mg Tablet PO 03/13/25 17:59
QPM CITLALLI
Clopidogrel Bisulfate 75 mg 02/13/25 08:00 02/14/25 07:09
Clopidogrel 75 Mg Tablet PO 03/13/25 07:59 75 mg
DAILY CITLALLI Administration
Cyanocobalamin (Vitamin B12) 1,000 mcg 02/15/25 08:00
Cyanocobalamin (Vitamin B-12) 500 Mcg Tablet PO 03/15/25 07:59
DAILY CITLALLI
Famotidine 40 mg 02/15/25 08:00
Famotidine 20 Mg Tablet PO 03/15/25 07:59
DAILY CITLALLI
Ketorolac Tromethamine 10 mg 02/12/25 21:31 02/13/25 17:18
Ketorolac 15 Mg/Ml Injection IV 02/17/25 21:30 10 mg
Q6HPRN PRN Administration
Moderate Pain / Headache
Metoclopramide HCl 10 mg 02/12/25 21:31 02/14/25 07:09
Metoclopramide 10 Mg/2 Ml Vial IV 03/12/25 21:30 10 mg
Q6HPRN PRN Administration
Headache / nausea
Sodium Chloride 0 flush 02/14/25 09:00
Sodium Chloride 0.9% (Flush) Syringe IV 03/14/25 08:59
PER PROTOCOL CITLALLI
Review of Systems
-
ROS is notable for HPI, otherwise negvative
Physical Exam
-
General: Well Developed, Well Nourished and No Apparent Distress
HEENT: Negative Jaundice
Cardiology: Normal Sinus Rhythm
Pulmonary: Clear
GI: Soft
Extremities: Pulses Present and Edema
Skin: Warm
Psych: Calm
Labs
Lab Results
WBC 4.0 10^3/uL (4.8-10.8) L 02/13/25 06:57
RBC 3.79 10^6/uL (4.20-5.40) L 02/13/25 06:57
Hgb 13.2 g/dL (12.0-16.0) 02/13/25 06:57
Hct 37.7 % (37.0-47.0) 02/13/25 06:57
MCV 99.5 fL (81.0-99.0) H 02/13/25 06:57
MCH 34.8 pg (27.0-31.0) H 02/13/25 06:57
MCHC 35.0 g/dL (33.0-37.0) 02/13/25 06:57
RDW 11.6 % (11.5-14.5) 02/13/25 06:57
Plt Count 221 10^3/uL (130-400) 02/13/25 06:57
MPV 10.1 fL (7.4-10.4) 02/13/25 06:57
Abs Immat Gran (auto) 0.0 10^3/uL (0-0.05) 02/12/25 17:47
Absolute Neuts (auto) 2.5 10^3/uL (1.4-6.5) 02/12/25 17:47
Absolute Lymphs (auto) 1.6 10^3/uL (1.2-3.4) 02/12/25 17:47
Absolute Monos (auto) 0.4 10^3/uL (0.1-0.6) 02/12/25 17:47
Absolute Eos (auto) 0.0 10^3/uL (0-0.7) 02/12/25 17:47
Absolute Basos (auto) 0.0 10^3/uL (0-0.2) 02/12/25 17:47
Immature Gran % 0.2 % (0-0.5) 02/12/25 17:47
Neutrophils % 55.1 % (42.2-75.2) 02/12/25 17:47
Lymphocytes % 34.7 % (20.5-51.1) 02/12/25 17:47
Monocytes % 8.7 % (1.7-9.3) 02/12/25 17:47
Eosinophils % 0.9 % (0-6) 02/12/25 17:47
Basophils % 0.4 % (0-2) 02/12/25 17:47
Creatinine 0.6 mg/dL (0.6-1.0) 02/13/25 06:57
Vital Signs
Vital Signs
Temp Pulse Resp BP Pulse Ox
97.7 F 66 12 119/73 100
02/14/25 13:11 02/14/25 13:11 02/14/25 13:11 02/14/25 13:11 02/14/25 13:11
--- NOTE | 2025-02-14 14:34 | CM ---
Initial assessment completed with patient with and father in room. Patient lives with her and 2 children (girl 12 y/o and boy
13 y/o)in a split level home plus basement with B/B on upper level, 1/2 bath on lower level, 1 step to enter. 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 Does not work. No DME. No in-home services. Does have a HC-POA. No VA
benefits. No psychiatric hospitalizations. PCP is Dr. Inessa Srinivasan. [facility]acy is [facility] [place]. Discharge POC: Anticipate home with no needs.
[2025-02-14 15:32] VITALS: BP 117/77
--- NOTE | 2025-02-14 15:57 | W.DCSUMMARY ---
Discharge Summary
Discharge Data
Date of Admission: 02/13/25
Date of Discharge: 02/14/25
-
Pending Results: Yes
Hospital Course
44-year-old female with past medical history of gastroparesis, anxiety, depression, IBS, migraine came to the hospital with complaining of ataxia, dysarthria and vision changes. CT scan initially was negative for acute CVA. MRI was later done
which showed acute stroke. Patient was seen by neurology throughout hospitalization and was started on aspirin and Plavix which was instructed to continue for total 21 days and then discontinue Plavix and continue aspirin indefinitely. Given
patient age MADDY was recommended. Patient then underwent MADDY which showed small PFO. Patient instructed to get 30-day ekg monitor prior to discharge and to follow-up with cardiology closely outpatient for possible closure of PFO. Since patient
also had family history of thrombotic disease, hematology was consulted. Hematology recommended patient to follow-up with them closely outpatient and to follow-up with prothrombotic studies which were pending. Patient symptoms continue to improve
over time. Once patient symptoms were improving, she was then discharged home with instructions to follow-up closely with all her physicians outpatient.
Discharge Plan
-
Patient Disposition: Home (Routine Discharge)
Discharge Diagnosis/Procedures: Acute CVA
PFO
Condition: Fair
Diet: As tolerated and Regular
Activity: As tolerated
Driving Restrictions: As prior to admission
Bathing Restrictions: None
Others Tests: - A 30-day rhythm star monitor is being placed prior to your discharge from the hospital. Please wear the monitor is much as possible and only remove for showering. When the 30-day monitoring period has ended, please remove the
monitor and place in the postage paid box to mail back to the cardiology office.
Activity Restrictions/Additional Instructions:
Continue aspirin and Plavix for 19 more days and then discontinue Plavix and continue aspirin indefinitely
Follow-up with hematology closely outpatient for prothrombotic workup
Referrals:
Teresa Calixto MD [Active, Hematology / Oncology] - in one to two weeks
Edwin Clements MD [Active, Neurology] - in two to three weeks
Inessa Srinivasan MD [Family Provider, Family Practice] - in less than 1 week
Slime Fried MD [Active, Cardiology] - 03/29/25 8:40 am
Referral Note: The cardiology office has arranged an appointment for you to be seen by Dr. Fried to discuss possible PFO closure 03/29/2025 at 8:40 AM at the [place] office and we are actively working to move that appointment up so you can be seen
sooner and we will call you.
Michelle Nails DO [Active, Cardiology] - 03/03/25 3:20 pm
Referral Note: You have an appointment to see Dr. Nails's physician certified ophthalmic assistant, Deana, at the [place] office on 03/03/2025 at 3:[address] Fried is in the office that day as well.
Prescriptions:
New
aspirin 81 mg Tablet,Chewable
81 mg PO DAILY Qty: 30 0RF
clopidogrel 75 mg Tablet
75 mg PO DAILY Qty: 19 0RF
atorvastatin [Lipitor] 80 mg tablet
80 mg PO HS Qty: 30 0RF
Continued
valacyclovir [Valtrex] 1 gram Tablet
1,000 mg PO DAILYPRN PRN (Reason: cold sores)
famotidine [Pepcid] 40 mg Tablet
40 mg PO DAILY
ascorbic acid (vitamin C) [Vitamin C] 500 mg Tablet
500 mg PO DAILY
jpgqfir-qcolupjgpbxnh-cnbcfgcc [Excedrin Migraine] 250-250-65 mg Tablet
1 tab PO DAILYPRN PRN (Reason: headaches)
cholecalciferol (vitamin D3) [Vitamin D3] 25 mcg (1,000 unit) Tablet
25 mcg PO DAILY
Visbiome 112.5 billion cell Capsule
1 cap PO DAILY
cyanocobalamin (vitamin B-12) 1,000 mcg Tablet
1,000 mcg PO DAILY
Discharge Orders:
Discharge Patient (As Directed); Ordered 02/14/25
Ordered By: Tae Blackwell
Discharge Date and Time
Discharge Date/Time: 02/14/25 18:02
Print Language: SAMOAN
--- NOTE | 2025-02-14 17:08 | CM ---
Patient has been medically cleared for discharge to home with no additional skilled services. Family will transport home.
[2025-02-15 15:33] LABS: Beta-2-Glycoprotein I Ab. IgG <10 SGU (<=20); Beta-2-Glycoprotein I Ab. IgM <10 SMU (<=20)
[2025-02-16 01:41] LABS: Beta-2-Glycoprotein I Ab. IgA <10 SAU (<=20)
== END 2025-02-14 18:02 | disposition home or self-care (01) | DRG 65 ==
LOC: 4 WEST ACU 11:05
PROVIDERS: Hospitalist; Nurse Practitioner Acute Care; Student in an Organized Health Care Education/Training Program; ADMITTING PHYSICIAN Hospitalist; ATTENDING PHYSICIAN Internal Medicine; CONSULT PHYSICIAN Internal Medicine Hematology & Oncology; CONSULT PHYSICIAN Psychiatry & Neurology Neurology; EMERGENCY PHYSICIAN Emergency Medicine; FAMILY PHYSICIAN Family Medicine; OTHER PHYSICIAN Internal Medicine Cardiovascular Disease
PROC: B24BZZ4 Ultrasonography of Heart with Aorta, Transesophageal (ICD-10-PCS; 2025-02-14)
DX: I63.9 Cerebral infarction, unspecified (principal); D68.2 Hereditary deficiency of other clotting factors; D68.52 Prothrombin gene mutation; E87.1 Hypo-osmolality and hyponatremia; Q21.12 Patent foramen ovale; K31.84 Gastroparesis; F41.9 Anxiety disorder, unspecified; F32.A Depression, unspecified; G43.909 Migraine, unspecified, not intractable, without status migrainosus; K58.9 Irritable bowel syndrome, unspecified; Z79.899 Other long term (current) drug therapy
CPT/HCPCS: 0042T; 70450; 70496; 70498; 70551; 80048; 80053; 80061; 83036; 84443; 84703; 85025; 85027; 85610; 85613; 85652; 85730; 86146; 86147; 86148; 92523; 92610; 93005; 93312; 93320; 93325; 93970; 96374; 97161; 97165; 99291; Q9967